=== PATIENT | female | born 2000 | race Caucasian/White ===

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

== ENCOUNTER 2019-07-21 10:44 | Emergency (ER) | payer OTHER ==
[~2019-07-21] VITALS: Ht 154.9 cm; Wt 79.8 kg
[2019-07-21 10:49] VITALS: Ht 154.9 cm; Wt 79.8 kg
[2019-07-21 12:30] LABS: BASOPHIL % 0.1 % (0-2); CALCIUM 8.8 mg/dL (8.5-10.1); CARBON DIOXIDE 22.5 mmol/L (21-32); CHLORIDE SERUM 105 mmol/L (98-107); CREATININE SERUM 0.5 mg/dL (0.6-1.0); GFR1 > 60 mL/min; GLUCOSE SERUM 117 mg/dL (74-106); PLATELET COUNT 228 x10^3mcL (130-400); POTASSIUM SERUM 4.1 mmol/L (3.5-5.1); RED CELL DISTRIBUTION WIDTH 20.5 % (11.5-14.5); SODIUM SERUM 138 mmol/L (136-145); rbc morphology (normal/abnorm) ABNORMAL (NORMAL)
[2019-07-21 12:35] LABS: ALBUMIN 2.8 g/dL (3.4-5.0); ALKALINE PHOSPHATASE 857 U/L (46-116); ALT/SGPT 10 U/L (14-59); AST/SGOT 11 U/L (15-37); BILIRUBIN TOTAL 0.31 mg/dL (0.20-1.00)
[2019-07-21 12:54] LABS: microscopic required? YES; urine erythrocyte 2+ (NEGATIVE)
[2019-07-21 13:37] VITALS: BP 104/77
== END 2019-07-21 13:37 | disposition home or self-care (01) ==
LOC: ED 10:44
PROVIDERS: Emergency Medicine
DX: O23.43 Unspecified infection of urinary tract in pregnancy, third trimester (principal); O26.893 Other specified pregnancy related conditions, third trimester; R51 Headache; Z3A.38 38 weeks gestation of pregnancy
CPT/HCPCS: 36415

== ENCOUNTER 2019-08-13 13:09 | Emergency (ER) | payer OTHER ==
[~2019-08-13] VITALS: Ht 154.9 cm; Wt 68.3 kg
[2019-08-13 13:58] VITALS: Ht 154.9 cm; Wt 68.3 kg
[2019-08-13 15:22] VITALS: BP 107/62
== END 2019-08-13 15:22 | disposition home or self-care (01) ==
LOC: ED 13:09
DX: L92.8 Other granulomatous disorders of the skin and subcutaneous tissue (principal)